=== PATIENT | male | born 1965 | race Caucasian/White ===

== ENCOUNTER 2021-01-29 05:52 | Day surgery (SDC) | payer BC ==
[2021-01-29] MEDS ORDERED: fentaNYL 100 MCG/2 ML SDV IV ONE ×6 (05:53→07:35)
[2021-01-29] MEDS ORDERED: Midazolam 1 MG/ML 2 ML SDV IV ONE ×7 (05:53→07:27)
[2021-01-29] MEDS ORDERED: fentaNYL 100 MCG/2 ML SDV ONE (05:57)
[2021-01-29] MEDS ORDERED: Midazolam 1 MG/ML 2 ML SDV ONE (05:57)
[2021-01-29] MEDS ORDERED: Dextrose 5%-0.45% NaCl 1,000 ML IV SCH (06:00)
--- NOTE | 2021-01-29 08:50 | OR ---
DATE: 01/29/2021 PROCEDURE: Total colonoscopy. INSTRUMENT USED: [id number] Olympus video colonoscope. PREMEDICATIONS: Fentanyl 175 mcg intravenous, Versed 4 mg intravenous. Nasal O2 cannula. The procedure was done under pulse oximetry, BP recording, and library monitor. INDICATION: Screening colonoscopic examination is done for detection of any polypoid lesions and removal, endoscopic hemostasis therapy if needed. DESCRIPTION OF PROCEDURE: Initial rectal exam was unremarkable. Rigid anoscopy was normal. The colonoscope was passed with ease. Few scattered diverticula were noted in the distal left colon along with deformity. The scope was passed with ease up to the ileocecal area. Photographs were taken of the normal- appearing cecum identified by landmarks of appendiceal orifice and double-bulged ileocecal folds. No bleeding was noted from any of the visualized areas at the commencement of the examination. The bowel preparation was found to be adequate, [place] scale 3 in all the regions, total score 9. No stricture. No vascular ectasia. No large isolated ulcerations seen. No evidence of diffuse inflammatory bowel disease in the form of friability, contact bleeding, or ulcerations. No polyp or tumor mass identified. Probing the proximal sides of folds and flexures using adequate distention and clearing up the stool material, withdrawal of the scope was made, cecum to rectum time over 6 minutes. No bleeding was noted from any of the visualized areas at the completion of the examination. IMPRESSION: Diverticulosis. The patient tolerated the procedure well. [facility] /[id number]
[2021-01-29 10:40] VITALS: BP 96/68; PULSE 47
== END 2021-01-29 09:48 | disposition home or self-care (01) ==
LOC: DL.ENDO 05:52
PROVIDERS: ATTEND Internal Medicine Gastroenterology
DX: Z12.11 Encounter for screening for malignant neoplasm of colon (principal); K57.30 Diverticulosis of large intestine without perforation or abscess without bleeding; R73.9 Hyperglycemia, unspecified; D72.819 Decreased white blood cell count, unspecified; D16.9 Benign neoplasm of bone and articular cartilage, unspecified
CPT/HCPCS: J2250; J3010; J7042

== ENCOUNTER 2023-01-02 11:53 | Emergency (ER) | payer BC ==
[2023-01-02] MEDS ORDERED: Acetaminophen 325 MG Tab PO ONE (12:00)
[2023-01-02 12:03] VITALS: BP 138/102; PULSE 64
== END 2023-01-02 12:30 | disposition home or self-care (01) ==
LOC: DL.ED 11:53
DX: S69.91XA Unspecified injury of right wrist, hand and finger(s), initial encounter (principal); W23.1XXA Caught, crushed, jammed, or pinched between stationary objects, initial encounter
CPT/HCPCS: 29130; 99283; A9270